=== PATIENT | male | born 1970 | race Caucasian/White ===

== ENCOUNTER → 2016-11-08 | Outpatient (CLI) | payer OTHER ==
--- NOTE | 2016-11-08 15:20 | US ---
Testicular Sonogram Clinical Indications: K40.90 Unilateral inguinal hernia, without obstruction or gangrene, not specifi ed as recurrent. Technique: Scrotal contents were imaged with the high-resolution transducer. Color and pulsed Dopple r/duplex were recorded on each side. Findings: Right testis measures 4.7 x 2.4 x 3.7 cm and left testis measures 4.6 x 1.9 x 3.4 cm. Both testes are homogeneous in echogenicity without intratesticular masses. Duplex/Doppler signals are nor mal, without evidence of torsion or inflammation. Small right epididymal head cyst measuring 5 mm. No epididymal enlargement. No hydrocele or varicocele. Impression: 1. Normal bilateral testes without testicular torsion or masses. 2. Small benign right epididymal head cyst measuring 5 mm. 3. No suspicious findings.
== END ==
LOC: FIMAGING 14:24
PROVIDERS: ATTEND Family Medicine
DX: N50.3 Cyst of epididymis (principal)